=== PATIENT | female | born 1975 | race Caucasian/White ===

== ENCOUNTER 2016-10-26 22:06 | Emergency (ER) | payer OTHER ==
[~2016-10-26] VITALS: Ht 170.2 cm; Wt 75.0 kg
[~2016-10-26 22:06] MED LIST: ALPR0.25 PO; PROM25TA5 PO; VIIB20TA PO; ZOFR4TAB3 SL
[2016-10-26 22:08] VITALS: BP 141/78; PULSE 72; RESP 18; TEMP 98.5; O2SAT 99
--- NOTE | 2016-10-26 22:57 | PD ---
HPI Chief Complaint: Injury Time Seen by Provider: 22:52 Travel History International Travel<30 days: No Contact w/Intl Traveler<30days: No Traveled to known affect area: No History of Present Illness HPI 41-year-old female with right fifth toe pain. She stubbed her toe on a painting. Symptom onset 7 PM. Throbbing in nature, no relieving factors. No other complaints. PFSH Past Medical History Anemia: Yes Anxiety: Yes ("HX OF PANIC ATTACKS,LAST ONE FEW MONTHS AGO") Depression: Yes Diminished Hearing: No Gastrointestinal Disorders: Yes GERD: Yes Psychiatric: Yes (PANIC ATTACKS HX) Immunizations Current: Yes ?: Not : 4 Para: 2 : 2 Past Surgical History Section: Yes (X2) Social History Alcohol Use: Yes ("SELDOM") Tobacco Use: Yes (1 PPD) Substance Use: No Allergies-Medications (Allergen,Severity, Reaction): Coded Allergies: No Known Allergies (Verified , 10/26/16) Reported Meds & Prescriptions Reported Meds & Active Scripts Active Reported Viibryd (Vilazodone) 20 Mg Tab 20 Mg PO DAILY Alprazolam 0.25 Mg Tab 0.25 Mg PO Q8H PRN Review of Systems Musculoskeletal: Positive: Limited ROM, Pain Physical Exam Narrative GENERAL: Well-nourished female in no acute distress SKIN: Warm and dry. Extremities: Focused right foot exam reveals tenderness to palpation along the shaft of the right fifth toe, no obvious deformities, slight bruising. Data Data Last Documented VS Vital Signs Date Time Temp Pulse Resp B/P Pulse Ox O2 Delivery O2 Flow Rate FiO2 10/26/16 22:08 98.5 72 18 141/78 99 Room Air Orders Toe (Min 2vws) (10/26/16 ) Ice/Cold Pack (10/26/16 22:56) MDM Medical Decision Making Medical Screen Exam Complete: Yes Emergency Medical Condition: Yes Medical Record Reviewed: Yes Differential Diagnosis Sprain, contusion, fracture Narrative Course X-ray reveals a nondisplaced fracture of the right fifth toe. The patient is being discharged with postop shoe and cameron tape splint. Diagnosis Primary Impression: Toe fracture, right Qualified Code: S92.504A - Closed nondisplaced fracture of phalanx of lesser toe of right foot, unspecified phalanx, initial encounter Additional Instructions: Ibuprofen or Tylenol for discomfort. Ice pack several times a day 10-15 minutes at a time. Follow-up with primary care physician in 2-3 weeks. Return for any emergent medical conditions. Med/Other Pt SpecificInfo: Orthopedic Instructions Disposition: 01 DISCHARGE HOME Condition: Stable Collins Velarde Oct 26, 2016 22:57
--- NOTE | 2016-10-27 00:33 | RADRPT ---
EXAM DATE/TIME: 10/26/2016 23:39 [facility] COMPARISON: No previous studies available for comparison. INDICATIONS : Right foot pain after stubbing toe today. MEDICAL HISTORY : None. SURGICAL HISTORY : None. ENCOUNTER: Initial ACUITY: 1 day PAIN SCORE: 8/10 LOCATION: Right lateral foot. FINDINGS: There is minimal fracturing of the distal lateral aspect of the fifth proximal phalanx. The joints ar e normally aligned. CONCLUSION: Minimal linear fracturing involving the distal lateral aspect of the fifth proximal phalanx. Vicente Wilks MD on October 27, 2016 at 0:30 Board Certified Radiologist. This report was verified electronically.
[2016-10-27] MEDS ORDERED: IBUPROFEN 800 MG TAB PO ONE (00:45)
[2016-10-27] MEDS ORDERED: ACETAMINOPHEN/CODEINE 300 MG/30 MG TAB PO ONE (00:45)
== END 2016-10-27 01:25 | disposition home or self-care (01) ==
LOC: NEPK 22:06
DX: S92.911A Unspecified fracture of right toe(s), initial encounter for closed fracture (principal); F17.210 Nicotine dependence, cigarettes, uncomplicated; W22.8XXA Striking against or struck by other objects, initial encounter; Y93.9 Activity, unspecified; Y92.89 Other specified places as the place of occurrence of the external cause; Y99.8 Other external cause status
CPT/HCPCS: 73660; 99283; L3260

== ENCOUNTER 2017-09-02 18:12 | Emergency (ER) | payer OTHER ==
[~2017-09-02] VITALS: Ht 170.2 cm; Wt 71.5 kg
[~2017-09-02 18:12] MED LIST changes: -PROM25TA5 PO; -ZOFR4TAB3 SL
[2017-09-02 18:20] VITALS: BP 123/79; PULSE 102; RESP 18; TEMP 98.8; O2SAT 100
[2017-09-02] MEDS ORDERED: NORT25CA PO (18:30)
[2017-09-02] MEDS ORDERED: ZOFR4TAB3 SL (18:57)
--- NOTE | 2017-09-02 19:01 | PD ---
HPI Chief Complaint: Cold / Flu Symptoms Time Seen by Provider: 18:43 Travel History International Travel<30 days: No Contact w/Intl Traveler<30days: No Traveled to known affect area: No History of Present Illness HPI 42-year-old female presents to the emergency room for evaluation of nausea, body aches, malaise, fatigue, chills, mild cough, mild sore throat for the past 2 days. States symptoms started 2 days ago in the morning and have progressively worsened. Her biggest complaint is nausea but she has not vomited. No diarrhea. No objective fevers. She has not taken anything over- the-counter. She has been drinking plenty of fluids to stay hydrated. Her son was diagnosed with influenza and started on Tamiflu 3 days prior to onset of symptoms. Only history of anxiety and depression. PFSH Past Medical History Anemia: Yes Anxiety: Yes ("HX OF PANIC ATTACKS,LAST ONE FEW MONTHS AGO") Depression: Yes Diminished Hearing: No Gastrointestinal Disorders: Yes GERD: Yes Psychiatric: Yes (PANIC ATTACKS HX) Immunizations Current: Yes Tetanus Vaccination: Unknown Influenza Vaccination: No ?: Not : 4 Para: 2 : 2 Past Surgical History Section: Yes (X2) Social History Alcohol Use: Yes ("SELDOM") Tobacco Use: Yes (1 PPD) Substance Use: No Allergies-Medications (Allergen,Severity, Reaction): Coded Allergies: No Known Allergies (Verified Adverse Reaction, Unknown, 09/02/17) Reported Meds & Prescriptions Reported Meds & Active Scripts Active Reported Nortriptyline (Nortriptyline HCl) 25 Mg Cap 25 Mg PO HS Alprazolam 0.25 Mg Tab 0.25 Mg PO Q8H PRN Review of Systems Except as stated in HPI: all other systems reviewed are Neg Physical Exam Narrative GENERAL: Well-nourished, well-developed female no acute distress. Afebrile. Ambulatory. SKIN: Focused skin assessment warm/dry. HEAD: Normocephalic. EYES: No scleral icterus. No injection or drainage. NECK: Supple, trachea midline. No JVD or lymphadenopathy. ENT: Mucosa pink and moist. Mild erythema without exudates. No uvular edema. No uvular, palatal, or tonsillar deviation. Airway patent. Nasal turbinates appear normal without nasal blood, purulent drainage or septal hematoma. EARS: Bilateral pinnae and external canals appear within normal limits. Bilateral tympanic membranes without erythema, dullness or perforation. CARDIOVASCULAR: Regular rate and rhythm without murmurs, gallops, or rubs. RESPIRATORY: Breath sounds equal bilaterally. No accessory muscle use. No crackles, rales, wheezes, or rhonchi. GASTROINTESTINAL: Abdomen soft, non-tender, nondistended. Data Data Last Documented VS Vital Signs Date Time Temp Pulse Resp B/P (MAP) Pulse Ox O2 Delivery O2 Flow Rate FiO2 09/02/17 18:20 98.8 102 18 123/79 (94) 100 MDM Medical Decision Making Medical Screen Exam Complete: Yes Emergency Medical Condition: Yes Medical Record Reviewed: Yes Differential Diagnosis Influenza, pneumonia, gastroenteritis, upper respiratory infection Narrative Course 42-year-old female presents to the emergency room for evaluation of flulike symptoms that started 2 days ago. Her son tested positive for influenza 3 days prior to her onset of symptoms. Her biggest complaint is nausea, fatigue, and malaise. She has had mild sore throat and cough. Physical exam is reassuring. Vital signs stable. Patient resting comfortably in bed. Lung sounds clear and equal bilaterally. She has mild erythema of the pharynx without edema or exudates. Abdomen is soft, nontender. She likely has influenza but is outside the window to be treated so testing will not be performed. She was discharged with prescription for Zofran and told to continue drinking plenty of fluids and follow-up with her primary care physician or return for worsening symptoms. She understands and agrees to plan. Diagnosis Primary Impression: Flu-like symptoms Referrals: Primary Care Physician Additional Instructions: Rest and drink plenty of fluids. Zofran as directed, as needed for nausea. Follow-up with a primary care physician. Return to the emergency room for worsening symptoms. Med/Other Pt SpecificInfo: Prescription(s) given Disposition: DISCHARGE HOME Condition: Stable Chasity Quiros Sep 02, 2017 19:01
== END 2017-09-02 19:18 | disposition home or self-care (01) ==
LOC: PHEFT 18:12
DX: B34.9 Viral infection, unspecified (principal); F41.0 Panic disorder [episodic paroxysmal anxiety]; F32.9 Major depressive disorder, single episode, unspecified; K21.9 Gastro-esophageal reflux disease without esophagitis; F17.210 Nicotine dependence, cigarettes, uncomplicated
CPT/HCPCS: 99283

== ENCOUNTER 2017-09-04 13:11 | Emergency (ER) | payer OTHER ==
[~2017-09-04] VITALS: Ht 170.2 cm; Wt 70.0 kg
[~2017-09-04 13:11] MED LIST changes: +NORT25CA PO; -VIIB20TA PO; +ZOFR4TAB3 SL
[2017-09-04 13:14] VITALS: BP 123/77; PULSE 119; RESP 16; TEMP 98.6; O2SAT 98
[2017-09-04] MEDS ORDERED: SODIUM CHLOR 0.9% 1000 ML INJ 1,000 ML IV SCH (13:22)
--- NOTE | 2017-09-04 13:29 | PD ---
HPI Chief Complaint: Flank/Kidney Pain Time Seen by Provider: 13:17 Travel History International Travel<30 days: No Contact w/Intl Traveler<30days: No Traveled to known affect area: No History of Present Illness HPI Patient was seen and examined in the presence of a nurse at all times This is a 42-year-old female who presents for left flank pain. She states that 5 days ago, she felt mild nasal congestion and nonproductive cough and body aches. She states that she had a family member with influenza. She was seen in the emergency department and was given a presumed diagnosis of influenza but was outside of the window for benefit from treatment with Tamiflu. She states that yesterday, she developed pain in the left flank. It now radiates mostly to the left groin/lower abdomen. No focal weakness, numbness, tingling, saddle paresthesias, bowel or bladder dysfunction. No fevers, chills, IV drug abuse. No urinary urgency, frequency, dysuria, hematuria. Symptoms are mild in severity. Sore in nature. Onset gradual. No prior treatment for this. PFSH Past Medical History Anemia: Yes Anxiety: Yes ("HX OF PANIC ATTACKS,LAST ONE FEW MONTHS AGO") Depression: Yes Diminished Hearing: No Gastrointestinal Disorders: Yes GERD: Yes Psychiatric: Yes (PANIC ATTACKS HX) Immunizations Current: Yes ?: Not LMP: 08/24/17 : 4 Para: 2 : 2 Past Surgical History Section: Yes (X2) Social History Alcohol Use: Yes ("SELDOM") Tobacco Use: Yes (1 PPD) Substance Use: No Allergies-Medications (Allergen,Severity, Reaction): Coded Allergies: No Known Allergies (Verified Adverse Reaction, Unknown, 09/04/17) Reported Meds & Prescriptions Reported Meds & Active Scripts Active Reported Nortriptyline (Nortriptyline HCl) 25 Mg Cap 25 Mg PO HS Alprazolam 0.25 Mg Tab 0.25 Mg PO Q8H PRN Review of Systems Except as stated in HPI: all other systems reviewed are Neg Physical Exam Narrative GENERAL: Alert, well nourished, well appearing patient resting on the bed in no acute distress. Vital Signs reviewed SKIN: Focused skin assessment warm/dry. HEAD: Atraumatic. Normocephalic. EYES: Pupils equal and round. No scleral icterus. No injection or drainage. ENT: No nasal bleeding or discharge. Mucous membranes pink and moist. TMs clear bilaterally. No tenderness over the mastoids. Posterior oropharynx with no erythema, edema, exudate. Uvula is midline. NECK: Trachea midline. No JVD. Spontaneous, painless full range of motion with no meningismus CARDIOVASCULAR: Regular rate and rhythm. No murmur appreciated. Extremities warm and well perfused with bounding peripheral pulses RESPIRATORY: No accessory muscle use. Clear to auscultation. Breath sounds equal bilaterally. Breathing easily and speaking in full sentences GASTROINTESTINAL: Abdomen soft, non-tender, nondistended. Normal bowel sounds. No rigid, rebound, guarding. Mild left CVA tenderness MUSCULOSKELETAL: No obvious deformities. No clubbing. No cyanosis. No edema. Compartments are soft. No midline tenderness to palpation along thoracic or lumbar spine. Negative straight leg raise. NEUROLOGICAL: Awake and alert. No obvious cranial nerve deficits. Motor grossly within normal limits. Normal speech. Sensation intact. Normal gait. No saddle paresthesias. Data Data Last Documented VS Vital Signs Date Time Temp Pulse Resp B/P (MAP) Pulse Ox O2 Delivery O2 Flow Rate FiO2 09/04/17 13:48 82 18 104/80 (88) 98 09/04/17 13:14 98.6 Orders Orders Urinalysis - C+S If Indicated (09/04/17 13:16) Complete Blood Count With Diff (09/04/17 13:22) Comprehensive Metabolic Panel (09/04/17 13:22) Ct Abd/Pel W/O Iv Contrast (09/04/17 13:22) Iv Access Insert/Monitor (09/04/17 13:22) Sodium Chlor 0.9% 1000 Ml Inj (Ns 1000 M (09/04/17 13:22) Sodium Chloride 0.9% Flush (Ns Flush) (09/04/17 13:30) Ed Urine Pregnancytest Poc (09/04/17 13:22) Influenzae A/B Antigen (09/04/17 13:22) Ketorolac Inj (Toradol Inj) (09/04/17 14:15) Labs Laboratory Tests Test 09/04/17 13:25 09/04/17 13:40 Urine Collection Type CLEAN CATCH Urine Color STRAW Urine Turbidity CLEAR Urine pH 6.0 Urine Specific [place] 1.005 Urine Protein NEG mg/dL Urine Glucose (UA) NEG mg/dL Urine Ketones NEG mg/dL Urine Occult Blood TRACE Urine Nitrite NEG Urine Bilirubin NEG Urine Leukocyte Esterase NEG Urine RBC 4-9 /hpf Urine WBC 0-2 /hpf Urine Squamous Epithelial Cells 6-8 /hpf Microscopic Urinalysis Comment CULT NOT INDICATED Urine Collection Time 13:25 White Blood Count 6.6 TH/MM3 Red Blood Count 4.71 MIL/MM3 Hemoglobin 13.2 GM/DL Hematocrit 38.5 % Mean Corpuscular Volume 81.7 FL Mean Corpuscular Hemoglobin 28.0 PG Mean Corpuscular Hemoglobin Concent 34.3 % Red Cell Distribution Width 12.9 % Platelet Count 264 TH/MM3 Mean Platelet Volume 8.2 FL Neutrophils (%) (Auto) 69.8 % Lymphocytes (%) (Auto) 22.6 % Monocytes (%) (Auto) 5.5 % Eosinophils (%) (Auto) 1.2 % Basophils (%) (Auto) 0.9 % Neutrophils # (Auto) 4.5 TH/MM3 Lymphocytes # (Auto) 1.5 TH/MM3 Monocytes # (Auto) 0.4 TH/MM3 Eosinophils # (Auto) 0.1 TH/MM3 Basophils # (Auto) 0.1 TH/MM3 CBC Comment DIFF FINAL Differential Comment Blood Urea Nitrogen 7 MG/DL Creatinine 0.66 MG/DL Random Glucose 124 MG/DL Total Protein 7.6 GM/DL Albumin 4.0 GM/DL Calcium Level 9.0 MG/DL Alkaline Phosphatase 58 U/L Aspartate Amino Transf (AST/SGOT) 16 U/L Alanine Aminotransferase (ALT/SGPT) 15 U/L Total Bilirubin 0.4 MG/DL Sodium Level 137 MEQ/L Potassium Level 3.6 MEQ/L Chloride Level 104 MEQ/L Carbon Dioxide Level 27.3 MEQ/L Anion Gap 6 MEQ/L Estimat Glomerular Filtration Rate 99 ML/MIN [facility] Medical Decision Making Medical Screen Exam Complete: Yes Emergency Medical Condition: Yes Medical Record Reviewed: Yes Interpretation(s) Date/Time Source Procedure Growth Status 09/04/17 13:43 Nasal Washing Influenza Types A,B Antigen (SRINIVASA) - Final NEGATIVE FOR FLU A AND B ANTIGEN.... Complete Laboratory Tests Test 09/04/17 13:25 09/04/17 13:40 Urine Collection Type CLEAN CATCH Urine Color STRAW Urine Turbidity CLEAR Urine pH 6.0 Urine Specific [place] 1.005 Urine Protein NEG mg/dL Urine Glucose (UA) NEG mg/dL Urine Ketones NEG mg/dL Urine Occult Blood TRACE Urine Nitrite NEG Urine Bilirubin NEG Urine Leukocyte Esterase NEG Urine RBC 4-9 /hpf Urine WBC 0-2 /hpf Urine Squamous Epithelial Cells 6-8 /hpf Microscopic Urinalysis Comment CULT NOT INDICATED Urine Collection Time 13:25 White Blood Count 6.6 TH/MM3 Red Blood Count 4.71 MIL/MM3 Hemoglobin 13.2 GM/DL Hematocrit 38.5 % Mean Corpuscular Volume 81.7 FL Mean Corpuscular Hemoglobin 28.0 PG Mean Corpuscular Hemoglobin Concent 34.3 % Red Cell Distribution Width 12.9 % Platelet Count 264 TH/MM3 Mean Platelet Volume 8.2 FL Neutrophils (%) (Auto) 69.8 % Lymphocytes (%) (Auto) 22.6 % Monocytes (%) (Auto) 5.5 % Eosinophils (%) (Auto) 1.2 % Basophils (%) (Auto) 0.9 % Neutrophils # (Auto) 4.5 TH/MM3 Lymphocytes # (Auto) 1.5 TH/MM3 Monocytes # (Auto) 0.4 TH/MM3 Eosinophils # (Auto) 0.1 TH/MM3 Basophils # (Auto) 0.1 TH/MM3 CBC Comment DIFF FINAL Differential Comment Blood Urea Nitrogen 7 MG/DL Creatinine 0.66 MG/DL Random Glucose 124 MG/DL Total Protein 7.6 GM/DL Albumin 4.0 GM/DL Calcium Level 9.0 MG/DL Alkaline Phosphatase 58 U/L Aspartate Amino Transf (AST/SGOT) 16 U/L Alanine Aminotransferase (ALT/SGPT) 15 U/L Total Bilirubin 0.4 MG/DL Sodium Level 137 MEQ/L Potassium Level 3.6 MEQ/L Chloride Level 104 MEQ/L Carbon Dioxide Level 27.3 MEQ/L Anion Gap 6 MEQ/L Estimat Glomerular Filtration Rate 99 ML/MIN Last 24 hours Impressions Abdomen/Pelvis CT 09/04/17 1322 Signed Impressions: Service Date/Time: August 14:22 - CONCLUSION: 1. No evidence of nephrolithiasis or obstructive uropathy. 2. 2.8 cm left adnexal cyst. 3. No evidence of acute process. Henrique Almanza MD Differential Diagnosis UTI, pyelonephritis, nephrolithiasis, ovarian cyst, musculoskeletal pain, influenza, no evidence of spinal compromise Narrative Course Labs, imaging were performed. Patient was given 1 L normal saline and a dose of Toradol with improvement in symptoms. Upon reexamination at 2:55 PM: Patient is resting comfortably on the bed in no acute distress. She has no evidence of spinal compromise. I reviewed the results of the workup with her. We discussed possibility of musculoskeletal pain versus ovarian cyst versus recently passed kidney stone. Patient is stable for discharge with supportive care, [id number] pain medication, increased oral fluid intake and close outpatient follow-up with primary physician within the next 1-4 days. Patient understands the importance of close outpatient follow-up. She understands she may require further testing and treatment as an outpatient. She understands strict return indications. She is comfortable with this plan and eager to go home. Diagnosis Primary Impression: Left flank pain Referrals: Primary Care Physician 1 day Patient Instructions: Flank Pain (ED), General Instructions Additional Instructions: Drink plenty of fluids to stay well-hydrated. Use ibuprofen as needed for pain. Follow up closely with primary physician within the next 1-4 days. Call today to make this appointment. You may require further testing and treatment as an outpatient. Return with worsening symptoms. Med/Other Pt SpecificInfo: No Change to Meds Disposition: 01 DISCHARGE HOME Condition: Stable Elsi Chilel MD Sep 04, 2017 13:29
[2017-09-04] MEDS ORDERED: SODIUM CHLORIDE 0.9% FLUSH 10 ML FLUSH IV FLUSH PRN (13:30)
[2017-09-04 13:46] LABS: BILIRUBIN, URINE NEG (NEG); BLOOD, URINE TRACE (NEG); GLUCOSE,URINE NEG (NEG); KETONE, URINE NEG (NEG); NITRITE,URINE NEG (NEG); URINE LEUKOCYTE ESTERASE NEG (NEG)
[2017-09-04 13:48] VITALS: BP 104/80; PULSE 82; RESP 18; O2SAT 98
[2017-09-04 13:50] LABS: AUTOMATED NEUTROPHIL # 4.5 TH/MM3 (1.8-7.7); BASOPHIL # 0.1 TH/MM3 (0-0.2); BASOPHIL % 0.9 % (0.0-2.0); EOSINOPHIL # 0.1 TH/MM3 (0-0.4); EOSINOPHIL % 1.2 % (0.0-4.0); HEMATOCRIT 38.5 % (35.0-46.0); HEMOGLOBIN 13.2 GM/DL (11.6-15.3); LYMPH % 22.6 % (9.0-44.0); LYMPHOCYTE # 1.5 TH/MM3 (1.0-4.8); MEAN CELL VOLUME 81.7 FL (80.0-100.0); MEAN CORPUSCULAR HGB CONC 34.3 % (32.0-36.0); MEAN PLATELET VOLUME 8.2 FL (7.0-11.0); MONO % 5.5 % (0.0-8.0); MONOCYTE # 0.4 TH/MM3 (0-0.9); NEUT % 69.8 % (16.0-70.0); PLATELET COUNT 264 TH/MM3 (150-450); RED BLOOD COUNT 4.71 MIL/MM3 (4.00-5.30); RED CELL DISTRIBUTION WIDTH 12.9 % (11.6-17.2); WHITE BLOOD COUNT 6.6 TH/MM3 (4.0-11.0)
[2017-09-04 14:00] LABS: URINE COLOR STRAW (YELLW/STRAW)
[2017-09-04 14:01] LABS: WBC, URINE 0-2 /hpf (0-5)
[2017-09-04 14:04] LABS: CHLORIDE 104 MEQ/L (98-107); SODIUM (NA) 137 MEQ/L (136-145)
[2017-09-04 14:07] LABS: BICARBONATE 27.3 MEQ/L (21.0-32.0); GLUCOSE,RANDOM 124 MG/DL (74-106)
[2017-09-04 14:08] LABS: BLOOD UREA NITROGEN 7 MG/DL (7-18)
[2017-09-04 14:10] LABS: ALT (GPT) 15 U/L (10-53)
[2017-09-04 14:11] LABS: AST (GOT) 16 U/L (15-37); CREATININE 0.66 MG/DL (0.50-1.00); GLOMERULAR FILTRATION RATE 99 ML/MIN (>89)
[2017-09-04 14:12] LABS: TOTAL BILIRUBIN ADULT 0.4 MG/DL (0.2-1.0); TOTAL PROTEIN 7.6 GM/DL (6.4-8.2)
[2017-09-04 14:13] LABS: ALKALINE PHOSPHATASE 58 U/L (45-117)
[2017-09-04] MEDS ORDERED: KETOROLAC TROMETHAMINE 30 MG/ML (IVP) VIAL IV PUSH ONE (14:15)
--- NOTE | 2017-09-04 14:49 | RADRPT ---
EXAM DATE/TIME: 09/04/2017 14:22 [facility] COMPARISON: No previous studies available for comparison. INDICATIONS : Left flank pain. ORAL CONTRAST: No oral contrast ingested. RADIATION DOSE: 11.40 CTDIvol (mGy) MEDICAL HISTORY : Gastroesophageal reflux disease. SURGICAL HISTORY : section. ENCOUNTER: Initial ACUITY: 1 day PAIN SCALE: 7/10 LOCATION: Left flank TECHNIQUE: Volumetric scanning of the abdomen and pelvis was performed. Using automated exposure control and ad justment of the mA and/or kV according to patient size, radiation dose was kept as low as reasonably achievable to obtain optimal diagnostic quality images. DICOM format image data is available electro nically for review and comparison. FINDINGS: LOWER LUNGS: The visualized lower lungs are clear. LIVER: Homogeneous density without lesion. There is no dilation of the biliary tree. No calcified gallston es. SPLEEN: Normal size without lesion. PANCREAS: Within normal limits. KIDNEYS: Normal in size and shape. There is no mass, stone, or hydronephrosis. ADRENAL GLANDS: Within normal limits. VASCULAR: There is no aortic aneurysm. BOWEL/MESENTERY: The stomach, small bowel, and colon demonstrate no acute abnormality. There is no free intraperitone al air or fluid. ABDOMINAL WALL: Within normal limits. RETROPERITONEUM: There is no lymphadenopathy. BLADDER: No wall thickening or mass. REPRODUCTIVE: A left adnexal cyst measuring 2.8 x 2.3 cm in size is noted. INGUINAL: There is no lymphadenopathy or hernia. MUSCULOSKELETAL: Within normal limits for patient age. CONCLUSION: 1. No evidence of nephrolithiasis or obstructive uropathy. 2. 2.8 cm left adnexal cyst. 3. No evidence of acute process. Henrique Almanza MD on September 04, 2017 at 14:45 Board Certified Radiologist. This report was verified electronically.
[2017-09-04 15:15] VITALS: BP 124/76
== END 2017-09-04 15:18 | disposition home or self-care (01) ==
LOC: PHED 13:11
DX: R10.9 Unspecified abdominal pain (principal); K21.9 Gastro-esophageal reflux disease without esophagitis; F32.9 Major depressive disorder, single episode, unspecified; F41.0 Panic disorder [episodic paroxysmal anxiety]; F17.210 Nicotine dependence, cigarettes, uncomplicated
CPT/HCPCS: 74176; 80053; 81001; 84703; 85025; 87804; 96361; 96374; 99284; J1885; J7030

== ENCOUNTER 2018-04-14 15:06 | Observation (INO) ==
[2018-04-14 17:05] LABS: Baso # (Auto) 0.1 th/mm3 (0.0-0.2); Baso % (Auto) 0.8 % (0.0-2.0); Eos # (Auto) 0.1 th/mm3 (0.0-0.4); Eos % (Auto) 1.1 % (0.0-4.0); Hematocrit 32.2 % (35.0-46.0); Hemoglobin 11.3 gm/dL (11.6-15.3); Lymph # (Auto) 2.2 th/mm3 (1.0-4.8); Lymph % (Auto) 26.4 % (9.0-44.0); Mean Corpuscular HGB Conc 35.2 % (32.0-36.0); Mean Corpuscular Hemoglobin 27.4 pg (27.0-34.0); Mean Corpuscular Volume 77.9 fL (80.0-100.0); Mean Platelet Volume 8.6 fL (7.0-11.0); Mono # (Auto) 0.6 th/mm3 (0.0-0.9); Mono % (Auto) 7.1 % (0.0-8.0); Neut # (Auto) 5.4 th/mm3 (1.8-7.7); Neut % (Auto) 64.6 % (16.0-70.0); Platelet Count 266 th/mm3 (150-450); Red Blood Count 4.13 mil/mm3 (4.00-5.30); Red Cell Distribution Width 14.8 % (11.6-17.2); White Blood Count 8.4 th/mm3 (4.0-11.0)
[2018-04-14] MEDS ORDERED: Aspirin 325 MG Tablet PO ONE (17:09)
[2018-04-14 17:12] LABS: Chloride 107 meq/L (98-107); Potassium 3.4 meq/L (3.5-5.1); Sodium 140 meq/L (136-145)
[2018-04-14] MEDS ORDERED: Sod Chloride 0.9% Inj 1,000 ML IV.SIG SCH (17:15)
--- NOTE | 2018-04-14 17:15 | ED ---
HPI General Chief Complaint: Chest Pain Stated Complaint: Chest pain in center/SOB Time Seen by Provider: 04/14/18 16:33 Source: patient Mode of arrival: ambulatory Limitations: no limitations History of Present Illness HPI narrative: She is a 43-year-old female who presents to the emergency room with complaints of chest pain. Patient reports that for the past 5-6 days, she has felt a "tightness to her chest." Patient reports that nothing really makes the pain better or worse, she does feel short of breath or chest pain. Reports that she does feel nauseous but has not had any episodes of vomiting with her symptoms. Patient denies history of coronary artery disease, denies history of hypertension or hyperlipidemia, reports only history of anxiety. She also smokes cigarettes. Patient reports that symptoms are intermittent in nature, she does not remember how long symptoms normally last, patient reports that she has pain at this time. Patient has never had chest pain like this in the past. Patient with no recent travels or trips, no other complaints. Related Data Home Medications Medication Instructions Recorded Confirmed alprazolam [Xanax] 5 mcg/kg PO TID 01/23/18 04/14/18 vilazodone [Viibryd] 10 mg PO DAILY 04/14/18 04/14/18 Allergies Allergy/AdvReac Type Severity Reaction Status Date / Time No Known Allergies Allergy Verified 04/14/18 15:25 Review of Systems ROS: all other systems reviewed are negative [facility] Medical History Medical History Anxiety (Acute) Surgical History Surgical History History of (Acute) Social History Social History Substance History: No History of Abuse Second Hand Smoke Exposure: Yes Smoking Status: Current every day smoker Tobacco Type: Cigarettes How Often Do You Have a Drink Containing Alcohol: Never Recent Travel in [facility] within the Last 8 Weeks: No Recent Out of Country Travel within the Last 8 Weeks: No Immunization History Tetanus Immunization: Unsure Hx Influenza Vaccine This Season: No Exam Narrative Exam Narrative: GENERAL: moderate distress SKIN: Focused skin assessment warm/dry. HEAD: Atraumatic. Normocephalic. EYES: Pupils equal and round. No scleral icterus. No injection or drainage. ENT: No nasal bleeding or discharge. Mucous membranes pink and moist. NECK: Trachea midline. No JVD. CARDIOVASCULAR: tachycardic. No murmur appreciated. RESPIRATORY: No accessory muscle use. Clear to auscultation. Breath sounds equal bilaterally. GASTROINTESTINAL: Abdomen soft, non-tender, nondistended. Hepatic and splenic margins not palpable. MUSCULOSKELETAL: No obvious deformities. No clubbing. No cyanosis. No edema. NEUROLOGICAL: Awake and alert. No obvious cranial nerve deficits. Motor grossly within normal limits. Normal speech. PSYCHIATRIC: Appropriate mood and affect; insight and judgment normal. Course Initial Documented Vital Signs Temperature 99.3 F 04/14/18 15:21 Pulse Rate 117 H 04/14/18 15:21 Respiratory Rate 16 04/14/18 15:21 Blood Pressure 132/75 04/14/18 15:21 Pulse Oximetry 100 04/14/18 15:21 Last Documented Vital Signs Temperature 99.3 F 04/14/18 15:21 Pulse Rate 89 04/14/18 22:13 Respiratory Rate 16 04/14/18 22:13 Blood Pressure 117/74 04/14/18 22:13 Pulse Oximetry 97 04/14/18 16:33 Sign Out Sign Out Data: Patient Sign Out occurred on 04/14/18 at 19:05. Patient's care was discussed, and care was transferred from Melonie Ferraro to Darcy Vásquez MD. Sign Out Comment: patient pending CTA and observation to chest pain unit Last updated by Melonie Ferraro at 04/14/18 18:54 Post-Handoff Eval: Accepted in transfer of care from Dr. Ferraro for follow-up of pending CTA with plan to admit to observation to chest pain center per protocol if other studies are found to be unremarkable Medical Decision Making MDM Narrative Medical decision making narrative: During the course of the patients emergency department visit, the patients history, examination, and differential diagnosis were reviewed with the patient. The patient was placed on a lunchroom monitor with oximetry and frequent blood pressure monitoring. The patient had an IV access obtained and blood work sent for analysis. The patient was initially provided aspirin as well as SL nitro The patients laboratory studies were reviewed and remarkable for [-]. Radiology studies were reviewed and remarkable for [-] Medical Screen Exam Complete: Yes Emergency Medical Condition: Yes Differential Diagnosis Differential Diagnosis: ACS, arrhythmia, electrolyte abnormality, PE, gastritis , gastroenteritis, GERD Medical Records Medical records reviewed: Yes I reviewed the patient's medical records. Lab Data Result diagrams: 04/14/18 16:57 04/14/18 16:57 POC Results POC Urine Results Negative Lab Results 04/14/18 04/14/18 04/14/18 Range/Units 16:57 16:57 16:57 CBC w Diff Auto diff final WBC 8.4 (4.0-11.0) th/mm3 RBC 4.13 (4.00-5.30) mil/mm3 Hgb 11.3 L (11.6-15.3) gm/dL Hct 32.2 L (35.0-46.0) % MCV 77.9 L (80.0-100.0) fL MCH 27.4 (27.0-34.0) pg MCHC 35.2 (32.0-36.0) % RDW 14.8 (11.6-17.2) % Plt Count 266 (150-450) th/mm3 MPV 8.6 (7.0-11.0) fL Neut % (Auto) 64.6 (16.0-70.0) % Lymph % (Auto) 26.4 (9.0-44.0) % [place] % (Auto) 7.1 (0.0-8.0) % Eos % (Auto) 1.1 (0.0-4.0) % Baso % (Auto) 0.8 (0.0-2.0) % Neut # (Auto) 5.4 (1.8-7.7) th/mm3 Lymph # (Auto) 2.2 (1.0-4.8) th/mm3 [place] # (Auto) 0.6 (0.0-0.9) th/mm3 Eos # (Auto) 0.1 (0.0-0.4) th/mm3 Baso # (Auto) 0.1 (0.0-0.2) th/mm3 WBC Differential . Differential Comment . PT 10.7 (9.8-11.6) sec INR 1.1 Ratio APTT 23.8 L (24.3-30.1) sec D-Dimer Quant (PE/DVT) 1.31 H (0.00-0.50) mg/L FEU Sodium (136-145) meq/L Potassium (3.5-5.1) meq/L Chloride (98-107) meq/L Carbon Dioxide (21.0-32.0) meq/L Anion Gap (5-15) meq/L BUN (7-18) mg/dL Creatinine (0.50-1.00) mg/dL Estimated GFR (>89) mL/min Random Glucose (74-106) mg/dL Calcium (8.5-10.1) mg/dL Total Bilirubin (0.2-1.0) mg/dL AST (15-37) U/L ALT (10-53) U/L Alkaline Phosphatase (45-117) U/L Total Creatine Kinase (26-192) U/L Troponin I (0.02-0.05) ng/mL B-Natriuretic Peptide 15 (0-100) pg/mL Total Protein (6.4-8.2) g/dL Albumin (3.4-5.0) g/dL Urine Color (Yellw/Straw) Urine Clarity (Clear) Urine pH (5.0-8.5) Ur Specific [place] (1.002-1.035) Urine Protein (Neg-Trace) mg/dL Urine Glucose (UA) (Negative) mg/dL Urine Ketones (Negative) mg/dL Urine Occult Blood (Negative) Urine Nitrate (Negative) Urine Bilirubin (Negative) Urine Urobilinogen (Less than 2) mg/dL Ur Leukocyte Esterase (Negative) Urine RBC (0-3) /hpf Urine WBC (0-5) /hpf Ur Squamous Epith Cells (0-5) /hpf Micro UA Comment Ur Microscopic Review Urine Culture Comments 04/14/18 04/14/18 04/14/18 Range/Units 16:57 19:30 22:05 CBC w Diff WBC (4.0-11.0) th/mm3 RBC (4.00-5.30) mil/mm3 Hgb (11.6-15.3) gm/dL Hct (35.0-46.0) % MCV (80.0-100.0) fL MCH (27.0-34.0) pg MCHC (32.0-36.0) % RDW (11.6-17.2) % Plt Count (150-450) th/mm3 MPV (7.0-11.0) fL Neut % (Auto) (16.0-70.0) % Lymph % (Auto) (9.0-44.0) % [place] % (Auto) (0.0-8.0) % Eos % (Auto) (0.0-4.0) % Baso % (Auto) (0.0-2.0) % Neut # (Auto) (1.8-7.7) th/mm3 Lymph # (Auto) (1.0-4.8) th/mm3 [place] # (Auto) (0.0-0.9) th/mm3 Eos # (Auto) (0.0-0.4) th/mm3 Baso # (Auto) (0.0-0.2) th/mm3 WBC Differential Differential Comment PT (9.8-11.6) sec INR Ratio APTT (24.3-30.1) sec D-Dimer Quant (PE/DVT) (0.00-0.50) mg/L FEU Sodium 140 (136-145) meq/L Potassium 3.4 L (3.5-5.1) meq/L Chloride 107 (98-107) meq/L Carbon Dioxide 25.9 (21.0-32.0) meq/L Anion Gap 7 (5-15) meq/L BUN 6 L (7-18) mg/dL Creatinine 0.72 (0.50-1.00) mg/dL Estimated GFR 89 (>89) mL/min Random Glucose 86 (74-106) mg/dL Calcium 8.7 (8.5-10.1) mg/dL Total Bilirubin 0.3 (0.2-1.0) mg/dL AST 11 L (15-37) U/L ALT 16 (10-53) U/L Alkaline Phosphatase 52 (45-117) U/L Total Creatine Kinase 82 70 (26-192) U/L Troponin I Less than 0.02 L Less than 0.02 L (0.02-0.05) ng/mL B-Natriuretic Peptide (0-100) pg/mL Total Protein 7.3 (6.4-8.2) g/dL Albumin 4.0 (3.4-5.0) g/dL Urine Color Yellow (Yellw/Straw) Urine Clarity Clear (Clear) Urine pH 5.5 (5.0-8.5) Ur Specific [place] Less/equal 1.005 (1.002-1.035) Urine Protein Negative (Neg-Trace) mg/dL Urine Glucose (UA) Negative (Negative) mg/dL Urine Ketones Trace H (Negative) mg/dL Urine Occult Blood Trace (Negative) Urine Nitrate Negative (Negative) Urine Bilirubin Negative (Negative) Urine Urobilinogen 0.2 (Less than 2) mg/dL Ur Leukocyte Esterase Negative (Negative) Urine RBC 0-3 (0-3) /hpf Urine WBC 0-5 (0-5) /hpf Ur Squamous Epith Cells 6-10 H (0-5) /hpf Micro UA Comment Culture not ind Ur Microscopic Review Microscopic reviewed Urine Culture Comments Culture not ind 04/14/18 Range/Units 22:45 CBC w Diff WBC (4.0-11.0) th/mm3 RBC (4.00-5.30) mil/mm3 Hgb (11.6-15.3) gm/dL Hct (35.0-46.0) % MCV (80.0-100.0) fL MCH (27.0-34.0) pg MCHC (32.0-36.0) % RDW (11.6-17.2) % Plt Count (150-450) th/mm3 MPV (7.0-11.0) fL Neut % (Auto) (16.0-70.0) % Lymph % (Auto) (9.0-44.0) % [place] % (Auto) (0.0-8.0) % Eos % (Auto) (0.0-4.0) % Baso % (Auto) (0.0-2.0) % Neut # (Auto) (1.8-7.7) th/mm3 Lymph # (Auto) (1.0-4.8) th/mm3 [place] # (Auto) (0.0-0.9) th/mm3 Eos # (Auto) (0.0-0.4) th/mm3 Baso # (Auto) (0.0-0.2) th/mm3 WBC Differential Differential Comment PT (9.8-11.6) sec INR Ratio APTT (24.3-30.1) sec D-Dimer Quant (PE/DVT) (0.00-0.50) mg/L FEU Sodium (136-145) meq/L Potassium (3.5-5.1) meq/L Chloride (98-107) meq/L Carbon Dioxide (21.0-32.0) meq/L Anion Gap (5-15) meq/L BUN (7-18) mg/dL Creatinine (0.50-1.00) mg/dL Estimated GFR (>89) mL/min Random Glucose (74-106) mg/dL Calcium (8.5-10.1) mg/dL Total Bilirubin (0.2-1.0) mg/dL AST (15-37) U/L ALT (10-53) U/L Alkaline Phosphatase (45-117) U/L Total Creatine Kinase 66 (26-192) U/L Troponin I Less than 0.02 L (0.02-0.05) ng/mL B-Natriuretic Peptide (0-100) pg/mL Total Protein (6.4-8.2) g/dL Albumin (3.4-5.0) g/dL Urine Color (Yellw/Straw) Urine Clarity (Clear) Urine pH (5.0-8.5) Ur Specific [place] (1.002-1.035) Urine Protein (Neg-Trace) mg/dL Urine Glucose (UA) (Negative) mg/dL Urine Ketones (Negative) mg/dL Urine Occult Blood (Negative) Urine Nitrate (Negative) Urine Bilirubin (Negative) Urine Urobilinogen (Less than 2) mg/dL Ur Leukocyte Esterase (Negative) Urine RBC (0-3) /hpf Urine WBC (0-5) /hpf Ur Squamous Epith Cells (0-5) /hpf Micro UA Comment Ur Microscopic Review Urine Culture Comments Imaging Data Radiologist's impression: Chest X-Ray 04/14/18 16:33 CONCLUSION: No active disease. Chest CTA 04/14/18 17:26 CONCLUSION: 1. The study is negative for pulmonary embolism. ECG Data EKG Prior to Arrival: No Attestation: I personally reviewed and interpreted this ECG as follows: Interpretation: EKG at 1516: Sinus tachycardia at 101bpm, qt/qtc: 344/402, nonspecific st and t wave changes Discharge Plan Discharge Disposition Patient Disposition: 30 Still Patient Discharge Condition Condition: Stable Discharge Details Diagnosis: Chest pain Physicians Team ED Provider: Darcy Vásquez Primary Care Provider: Primary Care Gloria Bartholomew Attending Provider: Jose Francisco Haley Discharge Interventions Interventions: ED Discharge Assessment Last Done: 04/14/18 22:13 Vital Signs Last Done: 04/14/18 22:13 Status ED Status: Left Department Discharge Information Discharge Date/Time: 04/14/18 22:15
[2018-04-14 17:16] LABS: Anion Gap 7 meq/L (5-15); Calcium 8.7 mg/dL (8.5-10.1); Carbon Dioxide 25.9 meq/L (21.0-32.0); Glucose,Random 86 mg/dL (74-106)
--- NOTE | 2018-04-14 17:16 | XR ---
EXAM DATE: 04/14/2018 4:33 PM EDT AGE/SEX: 43 years / Female INDICATIONS: Chest pain and shortness of breath. CLINICAL DATA: This is the patient's initial encounter. Patient reports that signs and symptoms have been present for 4 - 6 days and indicates a pain score of 8/10. MEDICAL/SURGICAL HISTORY: None. None. COMPARISON: [facility], CHEST PA & LAT, 06/07/2012. . FINDINGS: A single AP view of the chest demonstrates the lungs to be symmetrically aerated without evidence of mass, infiltrate or effusion. The cardiomediastinal contours are unremarkable. Osseous structures a re intact. CONCLUSION: No active disease. Electronically signed by: Dima Lucero MD 04/14/2018 5:14 PM EDT
[2018-04-14 17:17] LABS: Blood Urea Nitrogen 6 mg/dL (7-18)
[2018-04-14 17:19] LABS: Alanine Aminotransferase 16 U/L (10-53)
[2018-04-14 17:20] LABS: Aspartate Aminotransferase 11 U/L (15-37); Glomerular Filtration Rate 89 mL/min (>89)
[2018-04-14 17:21] LABS: Activated Partial Thrombo Time 23.8 sec (24.3-30.1); D-Dimer 1.31 mg/L FEU (0.00-0.50); INR 1.1 Ratio; Prothrombin Time 10.7 sec (9.8-11.6); Total Protein 7.3 g/dL (6.4-8.2)
[2018-04-14 17:22] LABS: Alkaline Phosphatase 52 U/L (45-117)
[2018-04-14 17:31] LABS: Creatine Kinase 82 U/L (26-192)
[2018-04-14 19:53] LABS: Creatine Kinase 70 U/L (26-192)
--- NOTE | 2018-04-14 19:57 | CT ---
EXAM DATE: 04/14/2018 7:30 PM EDT AGE/SEX: 43 years / Female INDICATIONS: Short of breath and left sided chest pain. CLINICAL DATA: This is the patient's initial encounter. Patient reports that signs and symptoms have been present for 4 - 6 days and indicates a pain score of 7/10. MEDICAL/SURGICAL HISTORY: None. section. RADIATION DOSE: 8.92 CTDI (mGy) COMPARISON: No prior exams available for comparison. TECHNIQUE: Volumetric scanning was performed using a multi-row detector CT scanner during bolus infu wing of 65 ml Omnipaque 350 (iohexol) nonionic water-soluble contrast as a single exam dose. The ela a was post processed with a variety of visualization algorithms including full volume maximum intensi ty projection and sliding thin slab reformation. Using automated exposure control and adjustment of t he mA and/or kV according to patient size, radiation dose was kept as low as reasonably achievable to obtain optimal diagnostic quality images. DICOM format image data is available electronically for r eview and comparison. FINDINGS: Pulmonary Arteries: No filling defects are seen in the pulmonary arteries out to the subsegmental ve ssels. The left and right pulmonary arteries are normal in diameter. Lung: No infiltrates seen. Effusion: None. Mediastinum: No evidence of mediastinal or hilar adenopathy. Other: The axilla is unremarkable. CONCLUSION: 1. The study is negative for pulmonary embolism. Electronically signed by: Jakub Goldman MD 04/14/2018 7:56 PM EDT
[2018-04-14 22:13] LABS: Bilirubin,Urine Negative (Negative); Clarity,Urine Clear (Clear); Color,Urine Yellow (Yellw/Straw); Glucose,Urine (UA) Negative (Negative); Leukocyte Esterase,Urine Negative (Negative); Nitrite,Urine Negative (Negative); PH,Urine 5.5 (5.0-8.5); Specific Gravity,Urine Less/Equal 1.005 (1.002-1.035); Urobilinogen,Urine 0.2 mg/dL (Less than 2)
[2018-04-14 22:19] LABS: RBC,Urine 0-3 /hpf (0-3); WBC,Urine 0-5 /hpf (0-5)
--- NOTE | 2018-04-14 22:21 | ECG ---
Date Performed: 04/14/2018 Time Performed: 20:58:01 PTAGE: 43 years EKG: Sinus rhythm LOW QRS VOLTAGE IN PRECORDIAL LEADS BORDERLINE ECG PREVIOUS TRACING : 04/14/2018 15.16 Since the previous tracing, no significant change noted DOCTOR: Phillip Gamino Interpretating Date/Time 04/14/2018 22:19:16
--- NOTE | 2018-04-14 22:37 | ECG ---
Date Performed: 04/14/2018 Time Performed: 15:16:03 PTAGE: 43 years EKG: SINUS TACHYCARDIA NONSPECIFIC ST & T-WAVE ABNORMALITY ABNORMAL RHYTHM ECG Since the PREVIOUS TRACING , no significant change noted DOCTOR: Phillip Gamino Interpretating Date/Time 04/14/2018 22:36:14
[2018-04-14 23:26] LABS: Creatine Kinase 66 U/L (26-192)
--- NOTE | 2018-04-15 08:09 | P.HP ---
History of Present Illness Primary Care Physician: No Primary Care Physician Chief Complaint: Chest pain History of Present Illness: 43-year-old female who presented the hospital to get evaluated for chest pain. Patient states of the last week she has been experiencing chest discomfort located in her epigastric region which she describes as a tightness sensation that is been presenting itself intermittently throughout the day whether she is exerting herself or at rest. She states that is more frequent whenever she lays down to go to sleep at night. He denies any radiation to the neck, back, shoulder, arm. She denies any nausea, vomiting, diaphoresis, lightheadedness, dizziness. States that intermittently she will experience some shortness of breath. Patient indicates that the pain can last up to an hour and usually resolves on its own. She has not tried to take any medications to help with the discomfort. Patient was evaluated emergency department and had unremarkable workup and it was recommended by the ER physician that the patient be observed in the chest pain center for further evaluation and management. - Diagnosis (1) Chest pain Review of Systems All other systems reviewed negative except as stated in HPI Cardiovascular: Reports chest pain PMF - History History Provided By: Patient - Medical History Medical History: Medical History (Last Reviewed 04/15/18 @ 07:58 by CHUCK Pastor) Anxiety - Surgical History Surgical History: Surgical History (Last Reviewed 04/15/18 @ 07:58 by CHUCK Pastor) History of - Family History Family History: Family History (Last Updated 04/15/18 @ 07:59 by CHUCK Pastor) Mother History of hypertension - Tobacco History Second Hand Smoke Exposure: Yes Tobacco Use In Past 30 Days: Yes Smoking Status: Current every day smoker Tobacco Type: Cigarettes Packs Per Day: 0.5 Years Smoked: 24 - Alcohol History How Often Do You Have a Drink Containing Alcohol: Never - Substance Use History Substance History: No History of Abuse - Travel History Recent Travel in the [place] Within the Last 8 Weeks: No Recent Travel Out of the Country Within the Last 8 Weeks: No - Immunization History Tetanus Immunization: Unsure Hx Influenza Vaccine This Season: No Medications and Allergies Active Medications: Active Medications Aspirin (Aspirin) 325 mg PO DAILY SASHA Sodium Chloride (Ns Inj) 1,000 mls @ 0 mls/hr IV.SIG BOLUS SASHA Last Infusion: 04/14/18 19:13 Dose: Infused Nitroglycerin (Nitrostat Sl) 0.4 mg SL Q5M PRN PRN Reason: CHEST PAIN Sodium Chloride (Ns Flush) 2 ml IV.FLUSH UNSCH PRN PRN Reason: FLUSH AFTER USING IV ACCESS Sodium Chloride (Ns Flush) 2 ml IV.FLUSH BID [facility] Last Admin: 04/14/18 23:24 Dose: 2 ml Sodium Chloride (Ns Flush) 2 ml IV.FLUSH PRN PRN PRN Reason: FLUSH AFTER USING IV ACCESS Allergies Allergy/AdvReac Type Severity Reaction Status Date / Time No Known Allergies Allergy Verified 04/14/18 15:25 Home Medications Medication Instructions Recorded Confirmed Type alprazolam [Xanax] 5 mcg/kg PO TID 01/23/18 04/14/18 History vilazodone [Viibryd] 10 mg PO DAILY 04/14/18 04/14/18 History Exam Vital signs: Vital Signs 04/14/18 15:21 04/14/18 16:32 04/14/18 16:33 Temperature 99.3 F Pulse Rate 117 H Respiratory Rate 16 16 Blood Pressure 132/75 Blood Pressure [Left Arm] 105/70 Blood Pressure [Right Arm] 100/65 Pulse Oximetry 100 100 97 04/14/18 19:28 04/14/18 22:13 04/14/18 23:04 Temperature Pulse Rate 87 89 70 Respiratory Rate 16 16 Blood Pressure 115/68 117/74 Blood Pressure [Left Arm] Blood Pressure [Right Arm] Pulse Oximetry 04/15/18 00:00 04/15/18 02:07 04/15/18 04:00 Temperature 97.4 F L 97.7 F Pulse Rate 70 67 Respiratory Rate 18 18 18 Blood Pressure 110/51 L 128/64 Blood Pressure [Left Arm] Blood Pressure [Right Arm] Pulse Oximetry 98 98 Intake & Output 04/14/18 04/15/18 04/15/18 18:59 06:59 18:59 Intake Total 1240 / 1240 Balance 1240 / 1240 Weight 71.7 kg 71.6 kg Intake: IV 1000 / 1000 NS Inj 1,000 ML @ Wide Open IV. 1000 / 1000 SIG BOLUS [facility] Rx#:[id number] Oral 240 / 240 Other: # Voids 2 Date of Last Bowel Movement 04/14/18 Weight On Admission 71 kg Narrative: GENERAL: Well-developed, well-nourished, in no acute distress. alert and orientated HEENT: Head is normocephalic without any lesions or masses noted. Facial features are symmetric. Eyes: Pupils equal round reactive to light. Extraocular muscles are intact. Conjunctivae were clear. Oropharyngeal: Pharynx without any erythema edema. Tongue is midline without deviation. Buccal mucosa is moist without any masses or lesions NECK: Supple without any masses. Trachea midline no deviation. No JVD, no bruits are appreciated CARDIAC: Regular rhythm, regular rate. S1/S2 are heard. No murmurs gallops or rubs. LUNGS: Clear to auscultation bilaterally. No wheeze, rhonchi or rales. No use of accessory muscles on inspiration or expiration. ABDOMEN: Soft, nontender. Nondistended. Bowel sounds heard in all 4 quadrants. No organomegaly or masses. Negative rebound, negative guarding EXTREMITIES: No edema, pulses are equal bilaterally. No cyanosis or clubbing NEUROLOGY: Mood and affect appear appropriate. Cranial nerves II through XII grossly intact. Muscle strength 5/5 in upper and lower extremities bilaterally. Deep tendon reflexes are 2+ in upper and lower extremities bilaterally. Results - Labs CBC & Chem 7: 04/14/18 16:57 04/14/18 16:57 Labs: Laboratory Results - last 24 hr 04/14/18 04/14/18 04/14/18 16:57 16:57 16:57 CBC w Diff Auto diff final WBC 8.4 RBC 4.13 Hgb 11.3 L Hct 32.2 L MCV 77.9 L MCH 27.4 MCHC 35.2 RDW 14.8 Plt Count 266 MPV 8.6 Neut % (Auto) 64.6 Lymph % (Auto) 26.4 [place] % (Auto) 7.1 Eos % (Auto) 1.1 Baso % (Auto) 0.8 Neut # (Auto) 5.4 Lymph # (Auto) 2.2 [place] # (Auto) 0.6 Eos # (Auto) 0.1 Baso # (Auto) 0.1 WBC Differential . Differential Comment . PT 10.7 INR 1.1 APTT 23.8 L D-Dimer Quant (PE/DVT) 1.31 H Sodium Potassium Chloride Carbon Dioxide Anion Gap BUN Creatinine Estimated GFR Random Glucose Calcium Total Bilirubin AST ALT Alkaline Phosphatase Total Creatine Kinase Troponin I B-Natriuretic Peptide 15 Total Protein Albumin Urine Color Urine Clarity Urine pH Ur Specific [place] Urine Protein Urine Glucose (UA) Urine Ketones Urine Occult Blood Urine Nitrate Urine Bilirubin Urine Urobilinogen Ur Leukocyte Esterase Urine RBC Urine WBC Ur Squamous Epith Cells Micro UA Comment Ur Microscopic Review Urine Culture Comments 04/14/18 04/14/18 04/14/18 16:57 19:30 22:05 CBC w Diff WBC RBC Hgb Hct MCV MCH MCHC RDW Plt Count MPV Neut % (Auto) Lymph % (Auto) [place] % (Auto) Eos % (Auto) Baso % (Auto) Neut # (Auto) Lymph # (Auto) [place] # (Auto) Eos # (Auto) Baso # (Auto) WBC Differential Differential Comment PT INR APTT D-Dimer Quant (PE/DVT) Sodium 140 Potassium 3.4 L Chloride 107 Carbon Dioxide 25.9 Anion Gap 7 BUN 6 L Creatinine 0.72 Estimated GFR 89 Random Glucose 86 Calcium 8.7 Total Bilirubin 0.3 AST 11 L ALT 16 Alkaline Phosphatase 52 Total Creatine Kinase 82 70 Troponin I Less than 0.02 L Less than 0.02 L B-Natriuretic Peptide Total Protein 7.3 Albumin 4.0 Urine Color Yellow Urine Clarity Clear Urine pH 5.5 Ur Specific [place] Less/equal 1.005 Urine Protein Negative Urine Glucose (UA) Negative Urine Ketones Trace H Urine Occult Blood Trace Urine Nitrate Negative Urine Bilirubin Negative Urine Urobilinogen 0.2 Ur Leukocyte Esterase Negative Urine RBC 0-3 Urine WBC 0-5 Ur Squamous Epith Cells 6-10 H Micro UA Comment Culture not ind Ur Microscopic Review Microscopic reviewed Urine Culture Comments Culture not ind 04/14/18 22:45 CBC w Diff WBC RBC Hgb Hct MCV MCH MCHC RDW Plt Count MPV Neut % (Auto) Lymph % (Auto) [place] % (Auto) Eos % (Auto) Baso % (Auto) Neut # (Auto) Lymph # (Auto) [place] # (Auto) Eos # (Auto) Baso # (Auto) WBC Differential Differential Comment PT INR APTT D-Dimer Quant (PE/DVT) Sodium Potassium Chloride Carbon Dioxide Anion Gap BUN Creatinine Estimated GFR Random Glucose Calcium Total Bilirubin AST ALT Alkaline Phosphatase Total Creatine Kinase 66 Troponin I Less than 0.02 L B-Natriuretic Peptide Total Protein Albumin Urine Color Urine Clarity Urine pH Ur Specific [place] Urine Protein Urine Glucose (UA) Urine Ketones Urine Occult Blood Urine Nitrate Urine Bilirubin Urine Urobilinogen Ur Leukocyte Esterase Urine RBC Urine WBC Ur Squamous Epith Cells Micro UA Comment Ur Microscopic Review Urine Culture Comments - Imaging Impressions Chest X-Ray 04/14/18 16:33 CONCLUSION: No active disease. Chest CTA 04/14/18 17:26 CONCLUSION: 1. The study is negative for pulmonary embolism. Caprini VTE Risk Assessment Caprini VTE Risk Assessment: No/Low Risk (score <= 1) Caprini Risk Assessment Model: Point Value = 1 Point Value = 2 Point Value = 3 Point Value = 5 Age 41-60 Minor surgery BMI > 25 kg/m2 Swollen legs Varicose veins or History of unexplained or recurrent spontaneous Oral contraceptives or hormone replacement Sepsis (< 1 month) Serious lung disease, including pneumonia (< 1 month) Abnormal pulmonary function Acute myocardial infarction Congestive heart failure (< 1 month) History of inflammatory bowel disease Medical patient at bed rest Age 61-74 Arthroscopic surgery Major open surgery (> 45 min) Laparoscopic surgery (> 45 min) Malignancy Confined to bed (> 72 hours) Immobilizing plaster cast Central venous access Age >= 75 History of VTE Family history of VTE Factor V Leiden Prothrombin [id number] Lupus anticoagulant Anticardiolipin antibodies Elevated serum homocysteine Heparin-induced thrombocytopenia Other congenital or acquired thrombophilia Stroke (< 1 month) Elective arthroplasty Hip, pelvis, or leg fracture Acute spinal cord injury (< 1 month) Prophylaxis Regimen: Total Risk Factor Score Risk Level Prophylaxis Regimen 0-1 Low Early ambulation 2 Moderate Order ONE of the following: *Sequential Compression Device (SCD) *Heparin 5000 units SQ BID 3-4 Higher Order ONE of the following medications: *Heparin 5000 units SQ TID *Enoxaparin/Lovenox 40 mg SQ daily (WT < 150 kg, CrCl > 30 mL/min) *Enoxaparin/Lovenox 30 mg SQ daily (WT < 150 kg, CrCl > 10-29 mL/min) *Enoxaparin/Lovenox 30 mg SQ BID (WT < 150 kg, CrCl > 30 mL/min) AND/OR *Sequential Compression Device (SCD) 5 or more Highest Order ONE of the following medications: *Heparin 5000 units SQ TID (Preferred with Epidurals) *Enoxaparin/Lovenox 40 mg SQ daily (WT < 150 kg, CrCl > 30 mL/min) *Enoxaparin/Lovenox 30 mg SQ daily (WT < 150 kg, CrCl > 10-29 mL/min) *Enoxaparin/Lovenox 30 mg SQ BID (WT < 150 kg, CrCl > 30 mL/min) AND *Sequential Compression Device (SCD) Assessment and Plan - Assessment (1) Chest pain Code(s): R07.9 - Chest pain, unspecified Status: Acute - Plan Chest pain, atypical -Patient with minimal risk factors to include tobacco use -Patient has been ruled out for acute coronary event with serial cardiac enzymes that have remained negative -Serial EKGs reviewed by myself which shows sinus rhythm without any changes -Exercise stress test was performed and indicated flat ST depressions noted in inferior/lateral leads. Cardiology is recommending myocardial perfusion study -Myocardial perfusion study was performed which did not indicate any ischemia, low risk -Continue aspirin, nitroglycerin as needed Anxiety -Home medications continued DVT prevention -Low risk, early ambulation Discharge Planning: Discharge home in stable condition Activity: Ad annie. Diet: Regular diet Medication per medication reconciliation Follow-up with primary medical doctor in 1 week
[2018-04-15] MEDS ORDERED: ALPRAZolam 0.25 MG Tablet PO SCH (09:00)
[2018-04-15] MEDS ORDERED: VILAZODONE 10 MG PO SCH (09:00)
[2018-04-15] MEDS ORDERED: Aspirin 325 MG Tablet PO SCH (09:00)
[2018-04-15] MEDS ORDERED: ALPRAZolam 0.5 MG Tablet PO SCH (09:00)
[2018-04-15] MEDS ORDERED: Regadenoson Inj 0.4 MG/5 ML Syringe IV.PUSH ONE (10:29)
--- NOTE | 2018-04-15 11:35 | NM ---
EXAM DATE: 04/15/2018 10:01 AM EDT AGE/SEX: 43 years / Female INDICATIONS:Angina. Abnormal Excercise Treadmill Test Mid chest pain for one week. CLINICAL DATA: This is the patient's initial encounter. Patient reports that signs and symptoms have been present for 1 week and indicates a pain score of 1/10. MEDICAL/SURGICAL HISTORY: None. section. COMPARISON: No prior exams available for comparison. No external comparison. DOSE: 8.7 mCi Tc 99m Myoview at rest 25.5 mCi [id number] at stress 0.4 mg Lexiscan STRESS SYMPTOMS: Shortness of breath. EJECTION FRACTION: 57 % TECHNIQUE: The patient underwent pharmacologic stress with infusion of prescribed dose. Continuous ECG tracing was monitored during stress. Gated SPECT imaging was performed after stress and conventi onal SPECT imaging was performed at rest. The examination was performed on a SPECT/CT scanner, both attenuation and non-corrected datasets were reviewed. FINDINGS: Distribution: The maximum perfused segment at stress is in the anterolateral wall. Perfusion Study: The pattern of perfusion at stress is within normal limits. Gated Study: There are intact wall motion and wall thickening without hypokinetic or dyskinetic segm ents. The ejection fraction is calculated at 57%. RISK CATEGORY: Low (<1% Annual Motality Rate) CONCLUSION: 1. No evidence for stress-induced ischemia. 2. No focal wall motion abnormality with EF of 57%. Electronically signed by: Fernie Irizarry MD 04/15/2018 11:34 AM EDT
[2018-04-15 12:23] VITALS: BP 114/73; PULSE 82; RESP 19; TEMP 98; O2SAT 98
--- NOTE | 2018-04-15 15:22 | TR ---
Date Performed: 04/15/2018 Time Performed: 10:49:05 DOCTOR: Panfilo Borjas DRUG LIST: CLINICAL HISTORY: ABNORMAL ETT REASON FOR TEST: ABNORMAL ETT REASON FOR ENDING: OBSERVATION: CONCLUSION: COMMENTS: st depression noted at yandel of exercise. This may represent ischemia
--- NOTE | 2018-04-15 15:26 | TR ---
Date Performed: 04/15/2018 Time Performed: 09:09:47 DOCTOR: Panfilo Borjas DRUG LIST: CLINICAL HISTORY: REASON FOR TEST: Angina REASON FOR ENDING: Completed Protocol OBSERVATION: Chest Pain: None CONCLUSION: Patient tolerated DEBORAH protocol with Total Exercise Time=6:01 Maximum VJ=165 % Max HR Achieved=92.0% Maximum BZ=873/78. Patien twas asymptomatic during entire test, Testing stopped sec ondary to goals acheived, During peak exercise, patient had flat/slow upsloping St segment depresions in inferior leads. HR and BP appropriate response to exercise. Recovery period, HR and BP returned t o baseline COMMENTS: ST depression noted at peak of exercise. This may represent ischemia
--- NOTE | 2018-04-15 21:02 | ECG ---
Date Performed: 04/14/2018 Time Performed: 22:43:34 PTAGE: 43 years EKG: Sinus rhythm LOW QRS VOLTAGE IN PRECORDIAL LEADS BORDERLINE ECG PREVIOUS TRACING : 04/14/2018 20.58 Since the previous tracing, no significant change noted DOCTOR: Phillip Gamino Interpretating Date/Time 04/15/2018 21:01:01
== END 2018-04-15 13:32 | disposition home or self-care (01) ==
LOC: PHED 15:06 → PHEDA 15:06 → PH3 22:00
PROVIDERS: ADMIT Hospitalist; ATTEND Hospitalist